=== PATIENT | male | born 1980 | race Caucasian/White ===

== ENCOUNTER 2018-03-17 11:18 | Day surgery (SDC) | payer OTHER, BC ==
[2018-03-09 11:13] VITALS: BMI 28.7
[2018-03-17] MEDS ORDERED: MIDAZOLAM HCL 2 MG/2 ML SINGLE DOSE VIAL ONE ×2 (12:30→12:43)
[2018-03-17] MEDS ORDERED: PROPOFOL 20 ML ONE (12:30)
[2018-03-17] MEDS ORDERED: ONDANSETRON 4 MG/2 ML VIAL ONE (12:36)
[2018-03-17] MEDS ORDERED: LIDOCAINE HCL 2% (50ML VIAL) NR ONE (12:45)
[2018-03-17] MEDS ORDERED: oxyCODONE HCL 5 MG TABLET PO PRN ×2 (13:19)
[2018-03-17] MEDS ORDERED: ONDANSETRON 4 MG/2 ML VIAL IVPUSH PRN (13:19)
[2018-03-17] MEDS ORDERED: PROMETHAZINE HCL 25 MG/1 ML VIAL IVPUSH PRN (13:19)
[2018-03-17 13:24] VITALS: TEMP 97.9
[2018-03-17 13:50] VITALS: BP 110/61; PULSE 75
--- NOTE | 2018-03-18 16:48 | OP ---
DATE OF OPERATION: DATE OF DICTATION: 03/18/2018 PREOPERATIVE DIAGNOSIS: Right long trigger finger. POSTOPERATIVE DIAGNOSIS: Right long trigger finger. OPERATIVE PROCEDURE: Right long trigger finger release. SURGEON: Dangelo Powers M.D. ANESTHESIA: Local sedation. COMPLICATIONS: None. ESTIMATED BLOOD LOSS: Minimal. INDICATION FOR PROCEDURE: The patient is a 38-year-old male with the above findings, indicated for operative treatment. Risks, benefits, and alternatives were discussed with the patient at length. Proper informed consent was obtained. DESCRIPTION OF PROCEDURE: After proper identification of the patient and correct operative site, patient was brought to the operating room and placed supine on the operating room table, all bony prominences well padded. Sedation and local anesthesia were given. The right upper extremity was prepped and draped in the usual sterile fashion. Well padded tourniquet was placed with a sterile prep. Esmarch bandage to exsanguinate the right upper extremity. Tourniquet inflated to 250 mmHg. Longitudinal incision made over the A1 erick to the long finger. Incision was taken sharply through skin with blunt and sharp dissection subcutaneous tissues. The A1 erick is identified and divided longitudinally. Patient was asked to flex and extend his finger. No further triggering was noted. Wound was repaired with 5-0 nylon suture. Sterile dressings were applied, and the patient was brought to recovery in stable condition. He tolerated procedure well. DANGELO POWERS M.D. [id number]
== END 2018-03-17 13:56 | disposition home or self-care (01) ==
LOC: FASU 11:18
PROVIDERS: ATTEND Orthopaedic Surgery Hand Surgery
PROC: 0LN70ZZ Release Right Hand Tendon, Open Approach (ICD-10-PCS; principal; 2018-03-17 12:53)
DX: M65.331 Trigger finger, right middle finger (principal)